=== PATIENT | female | born 1955 | race Caucasian/White ===

== ENCOUNTER 2016-09-12 11:42 | Emergency (ER) | payer MEDICAID, OTHER ==
[~2016-09-12] VITALS: Wt 80.0 kg
[~2016-09-12 11:42] MED LIST: MTF1000T PO; ONDA4TAB14 PO
[2016-09-12] MEDS ORDERED: METF500T4 PO (12:05)
[2016-09-12] MEDS ORDERED: LISI40TA9 PO (12:05)
--- NOTE | 2016-09-12 12:11 | ERD ---
ER Documentation Chief Complaint Date/Time DATE: 09/12/16 TIME: 12:09 Chief Complaint MED REFILL METFORMIN HPI This 61-year-old female presented for refill of her chronic medications. Also states that she has not established doctor in the area that she is from [place]. Sugars have been running okay. She is on metformin 1000 mg twice daily. She is also taking lisinopril 40 mg daily which she has been out of. She denies any other current symptoms or physical pain. Has no nausea or vomiting. ROS All systems reviewed and are negative except as per history of present illness. Medications Home Meds Active Scripts Lisinopril* (Lisinopril*) 40 Mg Tablet, 40 MG PO DAILY, #30 TAB Prov:ASHOK THURMAN DO 09/12/16 Metformin* (Glucophage*) 500 Mg Tab, 1000 MG PO BID, #60 TAB Prov:OLMANASHOK DO 09/12/16 Metformin* (Glucophage*) 1,000 Mg Tablet, 1000 MG PO BID, #40 TAB Prov:NEO LEUNG MD 07/24/16 Ondansetron (Ondansetron Odt) 4 Mg Tab.rapdis, 4 MG PO Q6H Y for NAUSEA AND/OR VOMITING, #10 TAB Prov:NEO LEUNG MD 07/24/16 Allergies Allergies: Coded Allergies: Unknown: Unable to obtain (Unverified , 07/24/16) PMhx/Soc Medical and Surgical Hx: pt denies Surgical Hx History of Surgery: No Anesthesia Reaction: No Hx Neurological Disorder: No Hx Respiratory Disorders: No Hx Cardiac Disorders: Yes (HTN) Hx Psychiatric Problems: No Hx Miscellaneous Medical Probl: Yes (HEP C ,DM ) Hx Alcohol Use: No Hx Substance Use: Yes Hx Tobacco Use: Yes Smoking Status: Never smoker Physical Exam Vitals Vital Signs Date Time Temp Pulse Resp B/P Pulse Ox O2 Delivery O2 Flow Rate FiO2 09/12/16 11:54 98.0 78 18 182/71 99 Physical Exam Const: [] No distress Eyes: Normal Conjunctiva ENT: Normal External Ears, Nose and Mouth. Neck: Full range of motion..~ No meningismus. Resp: Clear to auscultation bilaterally Cardio: Regular rate and rhythm, no murmurs Procedures/MDM Medication refill and the patient is diabetic and has current hypertension. The blood pressure is not high enough to need acutely lowered in the emergency room. Patient is going to go to the pharmacy refill her prescription take lisinopril today. Most importantly am also providing with list of low-cost clinics in the area she seems very willing to establish primary care doctor follow-up. She is feeling well her sugars have been controlled. I am discharging her list of community clinics. I am also telling her to come back to the hospital if she has any acute symptoms. Departure Diagnosis: Primary Impression: Encounter for medication refill Additional Impressions: Diabetes type 2, controlled Hypertension Condition: Stable Patient Instructions: Diabetes and Heart Disease, Hypertension, Established Referrals: COMMUNITY CLINICS YOU HAVE RECEIVED A MEDICAL SCREENING EXAM AND THE RESULTS INDICATE THAT YOU DO NOT HAVE A CONDITION THAT REQUIRES URGENT TREATMENT IN THE EMERGENCY DEPARTMENT. FURTHER EVALUATION AND TREATMENT OF YOUR CONDITION CAN WAIT UNTIL YOU ARE SEEN IN YOUR DOCTORS OFFICE WITHIN THE NEXT 1-2 DAYS. IT IS YOUR RESPONSIBILITY TO MAKE AN APPOINTMENT FOR FOLOW-UP CARE. IF YOU HAVE A PRIMARY DOCTOR --you should call your primary doctor and schedule an appointment IF YOU DO NOT HAVE A PRIMARY DOCTOR YOU CAN CALL OUR PHYSICIAN REFERRAL HOTLINE AT IF YOU CAN NOT AFFORD TO SEE A PHYSICIAN YOU CAN CHOSE FROM THE FOLLOWING [facility] [address] [facility]. [facility] [address] [facility] [facility] [address] [facility] [facility] [address] [facility]. [facility] [address] [facility]. [facility]. [address] Additional Instructions: Call your primary care doctor TOMORROW for an appointment during the next 1-2 days.See the doctor sooner or return here if your condition worsens before your appointment time. ASHOK THURMAN DO Sep 12, 2016 12:11
== END 2016-09-12 12:10 | disposition home or self-care (01) ==
LOC: E/R 11:42
DX: Z76.0 Encounter for issue of repeat prescription (principal); E11.9 Type 2 diabetes mellitus without complications; I10 Essential (primary) hypertension; Z79.84 Long term (current) use of oral hypoglycemic drugs
CPT/HCPCS: 99281

== ENCOUNTER 2016-10-18 01:52 | Emergency (ER) | payer SELFPAY ==
[~2016-10-18] VITALS: Ht 162.6 cm; Wt 80.0 kg
[~2016-10-18 01:52] MED LIST changes: +LISI40TA9 PO; +METF500T4 PO
[2016-10-18 01:57] VITALS: Ht 162.6 cm; Wt 80.0 kg
[2016-10-18] MEDS ORDERED: CLOT30CR24 TOP (11:15)
[2016-10-18] MEDS ORDERED: ALBU8.5H3 INH (11:15)
[2016-10-18] MEDS ORDERED: AZIT500T3 PO (11:15)
[2016-10-18] MEDS ORDERED: BENZ100C70 PO (11:16)
[2016-10-18] MEDS ORDERED: ACET500C5 PO (11:16)
== END 2016-10-18 02:54 | disposition left against medical advice (07) ==
LOC: E/R 01:52
DX: Z53.21 Procedure and treatment not carried out due to patient leaving prior to being seen by health care provider (principal)
CPT/HCPCS: 93005

== ENCOUNTER 2016-10-18 08:31 | Emergency (ER) | payer OTHER ==
[~2016-10-18] VITALS: Ht 162.6 cm; Wt 81.0 kg
[2016-10-18 08:40] VITALS: Ht 162.6 cm; Wt 81.0 kg
[2016-10-18] MEDS ORDERED: IPRATROPIUM (NEB) 0.5 MG/2.5 ML AMP HHN ONE (10:30)
[2016-10-18] MEDS ORDERED: ALBUTEROL 0.083% (NEB) 2.5 MG/3 ML AMP HHN ONE (10:30)
--- NOTE | 2016-10-18 10:53 | RADRPT ---
PROCEDURE: XR Chest. CLINICAL INDICATION: Cough TECHNIQUE: A single portable view of the chest was obtained. COMPARISON: None FINDINGS: The cardiomediastinal silhouette is within normal limits. The lungs and pleural spaces are clear. The soft tissues and osseous structures are unremarkable. IMPRESSION: No acute cardiopulmonary disease. RPTAT: HPNM Physician Celestino Date Time Electronically viewed and signed by Mamadou Shirley Physician on 10/18/2016 10:53 /
[2016-10-18] MEDS ORDERED: AZIT500T3 PO (11:15)
[2016-10-18] MEDS ORDERED: ALBU8.5H3 INH (11:15)
[2016-10-18] MEDS ORDERED: CLOT30CR24 TOP (11:15)
[2016-10-18] MEDS ORDERED: ACET500C5 PO (11:16)
[2016-10-18] MEDS ORDERED: BENZ100C70 PO (11:16)
--- NOTE | 2016-10-18 11:24 | ERD ---
ER Documentation Chief Complaint Date/Time DATE: 10/18/16 TIME: 11:18 Chief Complaint cough x2wks, chest hurts after coughing HPI Patient is a 61-year-old homeless female past medical history of diabetes and hypertension who presents to the ED with multiple complaints. She states that she has had a cough for 2 weeks, productive and dry, as well as a rash under her breast. She denies hemoptysis, night sweats, fever, chills. She denies shortness of breath or difficulty breathing. She states that she is not taking any medication for her symptoms. She denies leg pain, swelling, redness. She denies recent surgeries, recent travel or use of she denies abdominal pain, nausea, vomiting, diarrhea or constipation. ROS All systems reviewed and are negative except as per history of present illness. Medications Home Meds Active Scripts Benzonatate* (Tessalon Perle*) 100 Mg Capsule, 100 MG PO Q8H Y for COUGH for 14 Days, CAP Prov:THADDEUS MCLEAN PA-C 10/18/16 Acetaminophen* (Tylophen*) 500 Mg Capsule, 1 CAP PO Q6H Y for PAIN AND OR ELEVATED TEMP, #20 CAP Prov:ISIDOROTARITHADDEUS HAMEED PA-C 10/18/16 Albuterol Sulfate* (Proair HFA*) 8.5 Gm Hfa.aer.ad, 2 PUFF INH Q4, #1 INHALER Prov:THADDEUS MCLEAN PA-C 10/18/16 Azithromycin* (Zithromax*) 500 Mg Tablet, 500 MG PO DAILY for 3 Days, TAB Prov:THADDEUS MCLEAN-C 10/18/16 Clotrimazole* (Clotrimazole* AF) 1% - 30 Gm Cream.gm., 1 APPLIC TOP BID for 10 Days, TUB Prov:THADDEUS MCLEAN PA-C 10/18/16 Lisinopril* (Lisinopril*) 40 Mg Tablet, 40 MG PO DAILY, #30 TAB Prov:ASHOK THURMAN DO 09/12/16 Metformin* (Glucophage*) 500 Mg Tab, 1000 MG PO BID, #60 TAB Prov:ASHOK THURMAN DO 09/12/16 Metformin* (Glucophage*) 1,000 Mg Tablet, 1000 MG PO BID, #40 TAB Prov:NEO LEUNG MD 07/24/16 Ondansetron (Ondansetron Odt) 4 Mg Tab.rapdis, 4 MG PO Q6H Y for NAUSEA AND/OR VOMITING, #10 TAB Prov:NEO LEUNG MD 07/24/16 Allergies Allergies: Coded Allergies: No Known Allergy (Unverified , 10/18/16) PMhx/Soc History of Surgery: No Anesthesia Reaction: No Hx Neurological Disorder: No Hx Respiratory Disorders: No Hx Cardiac Disorders: Yes (HTN) Hx Psychiatric Problems: No Hx Miscellaneous Medical Probl: Yes (HEP C ,DM ) Hx Alcohol Use: No Hx Substance Use: Yes Hx Tobacco Use: Yes Physical Exam Vitals Vital Signs Date Time Temp Pulse Resp B/P Pulse Ox O2 Delivery O2 Flow Rate FiO2 10/18/16 10:27 80 20 96 21 10/18/16 08:40 97.5 85 19 157/77 95 Physical Exam GENERAL: Well-developed, well-nourished female. Appears in no acute distress. HEAD: Normocephalic, atraumatic. EYES: Pupils are equally reactive bilaterally. EOMs grossly intact. No conjunctival erythema. ENT: Moist mucous membranes. No uvula deviation. No kissing tonsils. No exudates. TMs clear with no erythema or drainage. No mastoid tenderness NECK: Supple. No lymphadenopathy or thyromegaly. No meningismus. negative kernig. negative brudinski. LUNG: Clear to auscultation bilaterally. No rhonchi, wheezing, rales or coarse breath sounds. No retractions. Speaking in full sentences HEART: Regular rate and rhythm. No murmurs, rubs or gallops. Extremities: Equal pulses bilaterally. No peripheral clubbing, cyanosis or edema. No unilateral leg swelling. NEUROLOGIC: Alert and oriented. Moving all four extremities. 5/5 strength in all extremities. Normal speech. Steady gait. Negative Homans sign SKIN: Normal color. Warm and dry. Erythematous rash under bilateral breasts. No drainage, no erythema. No fluctuance or induration. capillary refill < 2 seconds Results 24 hrs Current Medications Medications (Trade) Dose Ordered Sig/Cain Route PRN Reason Start Time Stop Time Status Last Admin Dose Admin Albuterol (Proventil 0.083% (Neb)) 5 mg ONCE ONCE N 10/18/16 10:30 10/18/16 10:31 DC 10/18/16 10:27 Ipratropium [place] (Atrovent 0.02% (Neb)) 0.5 mg ONCE ONCE HHN 10/18/16 10:30 10/18/16 10:31 DC 10/18/16 10:27 Ibuprofen (Motrin) 800 mg ONCE ONCE PO 10/18/16 11:30 10/18/16 11:30 DC Ibuprofen (Motrin) 400 mg ONCE ONCE PO 10/18/16 11:30 10/18/16 11:31 Procedures/MDM ER COURSE: I kept the patient and/or family informed of laboratory and diagnostic imaging results throughout the emergency room course. EKG, MONITORS, & DIAGNOSTIC IMAGING: [place] [id number] Radiology Main Line: [phone] DIAGNOSTIC IMAGING REPORT Patient: NAT RESENDIZ : 1955 Age: 61 Sex: F MR #: [id number] DOS: 10/18/16 0959 Ordering MD: THADDEUS MCLEAN PA-C Location: [facility] Room/Bed: PROCEDURE: XR Chest. CLINICAL INDICATION: Cough TECHNIQUE: A single portable view of the chest was obtained. COMPARISON: None FINDINGS: The cardiomediastinal silhouette is within normal limits. The lungs and pleural spaces are clear. The soft tissues and osseous structures are unremarkable. IMPRESSION: No acute cardiopulmonary disease. RPTAT: HPNM Physician Celestino Date Time Electronically viewed and signed by Physician Celestino on 10/18/2016 10 :53 / CC: THADDEUS MCLEAN PA-C EKG performed, read by Dr Elder 88 bpm, normal sinus rhythm, normal axis, no acute ST segment changes, no T wave inversion PROCEDURES: RT consult, albuterol and Atrovent. Tolerated procedure well with no adverse reaction. Seen improvement in symptoms. MEDICATIONS: Profen 400 mg MEDICAL DECISION MAKING: This is a 61-year-old female who presents with multiple complaints. Vital signs were reviewed. Patient is afebrile. Patient is not hypoxic. Patient is not toxic or ill-appearing. Patient's cough is of unknown etiology. Low suspicion for pneumonia, PE, pneumothorax, ACS, epiglottitis, obstruction, TB, pertussis, meningitis, sepsis. Patient does not have a history of DVT, PE, no recent surgeries, no recent travel, use of OCPs, no leg swelling. PERC Criteria Assessment: Age > 50: yes HR > 100: No 02 < 95%: No H/o DVT/PE: No Recent trauma/surgery: No Hemoptysis: No Exogenous Estrogen: No Unilateral Leg swelling: No Pretest probability > 15%: No [Less than 2% risk of PE. No further work up is necessary]. Patient's rash on her bilateral breasts is likely Jenna. No signs of infection. No induration or fluctuance or abscess. Low suspicion for necrotizing fasciitis, SJS, toxic epidermal necrolysis, Kawasaki, erythema multiforme, gangrene, scarlet fever, meningococcemia, sepsis, anaphylaxis, sepsis, deep space infection, or foreign body. I have low suspicion for DKA or HON K. Patient states that her blood sugars are within normal limits. She denies any polyphagia, polyuria or polydipsia. I also have low suspicion for hypertensive urgency, emergency or endorgan damage. Patient's blood pressure of 157/77 is consistent with normal blood pressure readings for patient. However I advised patient that she needs to follow-up with primary care for better management of her blood pressure. I consulted with Dr Elder who reviewed her imaging studies and EKG and agrees with plan. DISCHARGE: At this time, patient is stable for discharge and outpatient management with no new complaints during the ER course. Patient was sent home with azithromycin, clotrimazole, Tessalon Perles, Tylenol, and proair.. Patient will be discharged home with instructions to recheck for new or worsening symptoms such as fever, nausea, weakness, LOC and to follow up with primary care in the next 1-2 days. Patient was advised to return to the ER for any new or worsening symptoms. Plan was discussed and patient and/or family understands and agrees. Home instructions were given. Departure Diagnosis: Primary Impression: Jenna infection Additional Impression: URI, acute Condition: Stable Patient Instructions: Jenna Skin Infection (Adult) Additional Instructions: Call your primary care doctor TOMORROW for an appointment during the next 1-2 days.See the doctor sooner or return here if your condition worsens before your appointment time. THADDEUS MCLEAN PA-C Oct 18, 2016 11:24
[2016-10-18] MEDS ORDERED: IBUPROFEN 800 MG TAB PO ONE (11:30)
[2016-10-18] MEDS ORDERED: IBUPROFEN 200 MG TAB PO ONE (11:30)
[2016-10-18 11:34] VITALS: BP 155/72; PULSE 87; RESP 16; TEMP 98.1
== END 2016-10-18 11:39 | disposition home or self-care (01) ==
LOC: FTE 08:31
DX: B37.9 Candidiasis, unspecified (principal); J06.9 Acute upper respiratory infection, unspecified; I10 Essential (primary) hypertension; E11.9 Type 2 diabetes mellitus without complications; Z79.84 Long term (current) use of oral hypoglycemic drugs; Z87.891 Personal history of nicotine dependence
CPT/HCPCS: 71010; 93005; 94664; Z7502; Z7610